=== PATIENT | male | born 1990 | race Two or more races ===

== ENCOUNTER 2023-12-26 17:28 | Emergency (ER) | payer MEDICAID ==
[~2023-12-26] VITALS: Ht 162.6 cm; Wt 68.0 kg
[2023-12-26 17:37] VITALS: TEMP 97.9
[2023-12-26] MEDS ORDERED: ACETAMINOPHEN 325 MG TABLET ONE (18:35)
[2023-12-26] MEDS: ACETAMINOPHEN 325 MG TABLET PO ONE (18:36)
[2023-12-26 20:25] VITALS: BP 128/78; O2SAT 100
== END 2023-12-26 20:26 | disposition home or self-care (01) ==
LOC: ER 17:58
DX: R51.9 Headache, unspecified (principal); M54.2 Cervicalgia; V49.49XA Driver injured in collision with other motor vehicles in traffic accident, initial encounter; Y93.89 Activity, other specified; Y92.89 Other specified places as the place of occurrence of the external cause; Y99.8 Other external cause status
CPT/HCPCS: 70450-TC; 72125-TC